=== PATIENT | female | born 1975 | race Caucasian/White ===

== ENCOUNTER 2023-06-29 19:24 | Emergency (ER) | payer MEDICAID, SELFPAY ==
[2023-06-29 19:28] VITALS: BP 140/83; PULSE 95; RESP 16; TEMP 37.4; O2SAT 96; BMI 35.3
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
== END 2023-06-29 20:15 | disposition home or self-care (01) ==
PROVIDERS: Emergency Provider Emergency Medicine; PCP Family Medicine
DX: K64.9 Unspecified hemorrhoids (principal)
CPT/HCPCS: 99283

== ENCOUNTER 2023-07-01 10:10 | Emergency (ER) | payer MEDICAID, SELFPAY ==
[2023-07-01 10:18] VITALS: BP 140/101; PULSE 82; RESP 20; TEMP 36.9; O2SAT 98; BMI 34.6
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
== END 2023-07-01 11:08 | disposition home or self-care (01) ==
PROVIDERS: Emergency Provider Emergency Medicine Emergency Medical Services; PCP Family Medicine
DX: K64.4 Residual hemorrhoidal skin tags (principal)
CPT/HCPCS: 99282